=== PATIENT | female | born 1990 | race Caucasian/White ===

== ENCOUNTER → 2016-11-13 10:40 | Outpatient (CLI) | payer BC ==
[2013-11-24 16:20] VITALS: BMI 36.1
[~2016-11-13 10:40] MED LIST: HYDROCODONE-APA1 TAB PO; IBUPROFEN600 MG PO; PROTONIX40 MG PO
== END | disposition home or self-care (01) ==
LOC: D.US 10:40
DX: R10.9 Unspecified abdominal pain (principal)

== ENCOUNTER → 2016-11-29 08:03 | Outpatient (CLI) | payer MEDICAID ==
[2013-11-24 16:20] VITALS: BMI 36.1
== END | disposition home or self-care (01) ==
LOC: D.NM 08:03
DX: R10.11 Right upper quadrant pain (principal)

== ENCOUNTER → 2017-02-21 05:30 | Day surgery (SDC) | payer MEDICAID ==
[2017-02-20 12:13] LABS: BASOPHILS 0.2 % (0-2); EOSINOPHILS 1.1 % (0-7); HEMATOCRIT 40.8 % (36.0-48.0); HEMOGLOBIN 13.5 g/dL (12-16); IMMATURE GRANULOCYTES 0.2 % (0-5); LYMPHOCYTES 26.3 % (15-50); MCH 31.1 pg (26.0-34.0); MCHC 33.1 g/dL (31.0-37.0); MEAN PLATELET VOLUME 10.6 fL (7.4-10.4); MONOCYTES 9.2 % (2-11); PLATELET COUNT 220 10x3/uL (130-400); RBC 4.34 10x6/uL (4.00-5.40); RDW 13.6 % (11.5-14.5); WBC 5.3 10x3/uL (4.8-10.8)
[2017-02-20 12:26] LABS: CALC OSMOLALITY 275 mosm/kg (275-300); CALCIUM 8.8 mg/dL (8.5-10.1); CARBON DIOXIDE 28.9 mmol/L (21.0-32.0); CHLORIDE - SERUM 104 mmol/L (98-107); CREATININE - SERUM 0.7 mg/dL (0.6-1.3); GLUCOSE 87 mg/dL (74-106); POTASSIUM - SERUM 3.6 mmol/L (3.5-5.1); SODIUM 140 mmol/L (136-145); UREA NITROGEN 8 mg/dL (7-18); eGFR NON AFRICAN AMERICAN > 90 mL/min (90-120)
[~2017-02-21] VITALS: Ht 177.8 cm; Wt 86.2 kg
[~2017-02-21 05:30] MED LIST changes: +ATIVAN0.5 MG PO; +NULEV0.125 MG SL; +PHENERGAN25 M1 PO
[2017-02-21 06:27] VITALS: BP 123/73; Ht 177.8 cm; Wt 86.2 kg
[2017-02-21 06:31] LABS: HCG URINE NEGATIVE (NEGATIVE)
--- NOTE | 2017-02-21 13:44 | NUR ---
1230 DISCHARGE INSTRUCTIONS DONE ONCE PT WAS ABOUT TO URINATE. SHE HAS NO QUESTIONS OR CONCERNS AT THIS TIME. PT ESCORTED OUT BYRamesh GASTELUM RN.
--- NOTE | 2017-02-25 15:39 | OP ---
PATIENT NAME: LANCE GREGG MEDICAL RECORD: [id number] :88 LOCATION:D.OPS ADMISSION DATE: SURGEON: KHOI CARRERA MD DATE OF OPERATION: 02/21/2017 DATE OF OPERATION: 02/21/2017 PREOPERATIVE DIAGNOSIS: Biliary dyskinesia. POSTOPERATIVE DIAGNOSIS: Biliary dyskinesia. PROCEDURE: Laparoscopic cholecystectomy. SURGEON: Khoi Carrera MD REPORT OF PROCEDURE: The patient's abdomen was prepped and draped in sterile fashion. A cutdown was made on the superior aspect of the umbilicus, 0 Vicryls were placed in the fascia bilaterally and the fascia was incised with a 15-blade. I then bluntly entered the peritoneal cavity and placed a 12-mm Alyssia port. Under direct visualization, a 5 mm trocar was placed in the epigastrium and 2 more 5-mm trocars were placed in the right subcostal region. The gallbladder was grasped and elevated. The cystic artery and duct were dissected free and these were clipped proximally and distally and ligated in standard fashion. The gallbladder was taken off the liver bed using electrocautery and placed into the right upper quadrant. Any bleeding from the liver bed was then treated with electrocautery. At this point, the ports and insufflation were then removed and the gallbladder was taken out through the umbilicus. The umbilical fascia was closed with interrupted 0 Vicryls times 3. The wounds were then irrigated out with normal saline and infused with 10 mL of 0.25% Marcaine with epinephrine. The skin incisions were all closed with subcutaneous 5-0 Monocryl and dressed appropriately. COMPLICATIONS: None. CONDITION: Stable. ANESTHESIA: General endotracheal and local. BLOOD LOSS: Minimal. TRANSINT:[id number] Voice Confirmation ID: [id number] DOCUMENT ID: [id number] KHOI CARRERA MD at 1539 CC: MALIK OBRIEN MD [id number] DICTATION DATE: 02/21/17 0849 CAREER DEVELOPMENT MANAGER: 02/21/17 1310 [facility] 02/21/17 [facility] [address] [place] [address]
== END | disposition home or self-care (01) ==
LOC: D.OPS 05:30 → D.PAN 12:00
PROVIDERS: Surgery
DX: K82.8 Other specified diseases of gallbladder (principal); K21.9 Gastro-esophageal reflux disease without esophagitis; Z01.812 Encounter for preprocedural laboratory examination

== ENCOUNTER → 2018-05-21 10:05 | Outpatient (CLI) | payer SELFPAY ==
[2017-02-21 06:27] VITALS: BMI 27.3
[2018-05-21 13:24] LABS: APPEARANCE HAZY (CLEAR); BACTERIA MODERATE /hpf (NONE SEEN); BILIRUBIN NEGATIVE (NEGATIVE); COLOR YELLOW (YELLOW); EPITHELIAL CELLS 0-5 /hpf (0-5); GLUCOSE NEGATIVE (NEGATIVE); KETONE NEGATIVE (NEGATIVE); MUCUS <1+ /lpf (NONE SEEN); NITRITE NEGATIVE (NEGATIVE); PROTEIN NEGATIVE (NEGATIVE); RED CELLS - URINE 0-5 /hpf (0-5); UROBILINOGEN NORMAL (NORMAL); WHITE CELLS - URINE 0-5 /hpf (0-5)
== END | disposition home or self-care (01) ==
LOC: D.LDO 10:05
PROVIDERS: ATTEND Obstetrics & Gynecology
DX: O26.899 Other specified pregnancy related conditions, unspecified trimester (principal); Z3A.00 Weeks of gestation of pregnancy not specified

== ENCOUNTER 2018-06-03 09:43 | Outpatient (CLI) | payer OTHER ==
[2017-02-21 06:27] VITALS: BMI 27.3
[2018-06-03 10:50] LABS: APPEARANCE CLEAR (CLEAR); COLOR YELLOW (YELLOW); GLUCOSE NEGATIVE (NEGATIVE); KETONE MODERATE mg/dL (NEGATIVE); NITRITE NEGATIVE (NEGATIVE); PROTEIN NEGATIVE (NEGATIVE); SPECIFIC GRAVITY 1.005 (1.005-1.020)
[2018-06-03 10:51] LABS: BILIRUBIN NEGATIVE (NEGATIVE); UROBILINOGEN NORMAL (NORMAL)
== END 2018-06-03 13:35 ==
LOC: D.LDO 09:43
PROVIDERS: ATTEND Obstetrics & Gynecology
DX: O26.892 Other specified pregnancy related conditions, second trimester (principal); Z3A.22 22 weeks gestation of pregnancy

== ENCOUNTER → 2018-06-10 10:12 | Outpatient (CLI) | payer OTHER ==
[2017-02-21 06:27] VITALS: BMI 27.3
[2018-06-10 11:44] LABS: APPEARANCE CLEAR (CLEAR); BILIRUBIN NEGATIVE (NEGATIVE); COLOR YELLOW (YELLOW); GLUCOSE NEGATIVE (NEGATIVE); KETONE MODERATE mg/dL (NEGATIVE); NITRITE NEGATIVE (NEGATIVE); PROTEIN NEGATIVE (NEGATIVE); SPECIFIC GRAVITY 1.005 (1.005-1.020); UROBILINOGEN NORMAL (NORMAL)
[2018-06-10 12:54] LABS: APPEARANCE CLEAR (CLEAR); BILIRUBIN NEGATIVE (NEGATIVE); COLOR STRAW (YELLOW); GLUCOSE 1000 mg/dL (NEGATIVE); KETONE MODERATE mg/dL (NEGATIVE); NITRITE NEGATIVE (NEGATIVE); PROTEIN NEGATIVE (NEGATIVE); SPECIFIC GRAVITY 1.015 (1.005-1.020); UROBILINOGEN NORMAL (NORMAL)
== END | disposition home or self-care (01) ==
LOC: D.LDO 10:12
PROVIDERS: ATTEND Obstetrics & Gynecology
DX: O26.892 Other specified pregnancy related conditions, second trimester (principal); Z3A.24 24 weeks gestation of pregnancy

== ENCOUNTER → 2018-06-18 11:25 | Outpatient (CLI) | payer OTHER ==
[~2018-06-18 11:25] MED LIST changes: +AMOXICILLIN875 MG PO; +CREON (PANCRELI1 CAP PO; +METOPROLOL TART50 MG PO; +MOBIC7.5 MG PO; +PERCOCET 7.5/321 TAB PO
[2018-06-18 12:55] LABS: APPEARANCE CLEAR (CLEAR); BILIRUBIN NEGATIVE (NEGATIVE); COLOR YELLOW (YELLOW); GLUCOSE NEGATIVE (NEGATIVE); KETONE LARGE mg/dL (NEGATIVE); NITRITE NEGATIVE (NEGATIVE); PROTEIN NEGATIVE (NEGATIVE); SPECIFIC GRAVITY 1.015 (1.005-1.020); UROBILINOGEN NORMAL (NORMAL)
[2018-06-18 15:14] LABS: APPEARANCE CLEAR (CLEAR); BILIRUBIN NEGATIVE (NEGATIVE); COLOR STRAW (YELLOW); GLUCOSE 1000 mg/dL (NEGATIVE); KETONE MODERATE mg/dL (NEGATIVE); NITRITE NEGATIVE (NEGATIVE); PROTEIN NEGATIVE (NEGATIVE); SPECIFIC GRAVITY 1.005 (1.005-1.020); UROBILINOGEN NORMAL (NORMAL)
[2018-06-18 17:08] LABS: APPEARANCE CLEAR (CLEAR); BILIRUBIN NEGATIVE (NEGATIVE); COLOR STRAW (YELLOW); GLUCOSE 1000 mg/dL (NEGATIVE); KETONE SMALL mg/dL (NEGATIVE); NITRITE NEGATIVE (NEGATIVE); PROTEIN NEGATIVE (NEGATIVE); UROBILINOGEN NORMAL (NORMAL)
--- NOTE | 2018-06-18 17:36 | NUR ---
2nd iv bag infused. iv d/noelle with cath tip intact- pressure held and bandaide applied. discharge inst verbal and written given. ambulatory off unit.
== END | disposition home or self-care (01) ==
LOC: D.LDO 11:25
PROVIDERS: Obstetrics & Gynecology
DX: O26.90 Pregnancy related conditions, unspecified, unspecified trimester (principal)

== ENCOUNTER → 2018-09-16 17:16 | Outpatient (CLI) | payer OTHER ==
[2017-02-21 06:27] VITALS: BMI 27.3
[~2018-09-16 17:16] MED LIST changes: -AMOXICILLIN875 MG PO; -CREON (PANCRELI1 CAP PO; -METOPROLOL TART50 MG PO; -MOBIC7.5 MG PO; -PERCOCET 7.5/321 TAB PO
== END | disposition home or self-care (01) ==
LOC: D.LDO 17:16
PROVIDERS: ATTEND Obstetrics & Gynecology
DX: O26.893 Other specified pregnancy related conditions, third trimester (principal); Z3A.38 38 weeks gestation of pregnancy

== ENCOUNTER 2018-09-30 02:57 | Inpatient (IN) | payer OTHER ==
[~2018-09-30] VITALS: Ht 177.8 cm; Wt 86.2 kg
[2018-09-30] VITALS (7 sets, daily range): BP systolic 114–131; BP diastolic 64–76; Ht 177.8 cm; Wt 86.2 kg
[2018-09-30 03:45] LABS: HEMATOCRIT 35.7 % (36.0-48.0); HEMOGLOBIN 12.7 g/dL (12-16); MCH 32.1 pg (26.0-34.0); MCHC 35.6 g/dL (31.0-37.0); MCV 90.2 fL (80.0-100.0); MEAN PLATELET VOLUME 12.5 fL (7.4-10.4); RBC 3.96 10x6/uL (4.00-5.40); RDW 13.9 % (11.5-14.5); WBC 6.2 10x3/uL (4.8-10.8)
[2018-09-30] MEDS ORDERED: CREON (PANCRELI1 CAP PO (03:45)
[2018-09-30] MEDS ORDERED: AMOXICILLIN875 MG PO (03:57)
[2018-09-30 04:08] LABS: UDS - AMPHET NEGATIVE QUAL (NEGATIVE); UDS - BARB NEGATIVE QUAL (NEGATIVE); UDS - BENZO NEGATIVE QUAL (NEGATIVE); UDS - COCAINE NEGATIVE QUAL (NEGATIVE); UDS - OPIATE NEGATIVE QUAL (NEGATIVE); UDS - PCP NEGATIVE QUAL (NEGATIVE); UDS - THC NEGATIVE QUAL (NEGATIVE)
--- NOTE | 2018-09-30 06:20 | NUR ---
RECEIVED PT VIA BED FROM POST REPEAT C/S PER DR ASHLEY, PT TO ROOM 1227, VS INITIATED,
--- NOTE | 2018-09-30 06:20 | NUR ---
CONTINUATION FROM FIRST NOTE: RECOVERY VS PER THIS RN AND JATINDER SANDOVAL, RN, FF, ML, U/1, LITE BLEEDING NOTED WITH NO CLOTS, COLEEN PAD CHANGED, BIKINI INC WITH SMALL DRESSING CDI WITH NO DRAINAGE NOTED, ICE PACK TO ABD, PETE CATH INTACT DRAINING CLEAR YELLOW URINE, IV IN RIGHT FA INTACT WITH NO REDNESS OR EDEMA, NS WITH PITOCIN HUNG IV PER MD ORDERS INFUSING AT 125 ML/HR, SEE EMAR, PT RATES CRAMPING 5-6/10, WILL ADM TORADOL, BED IN LOW POSITION, SIDE RAILS X 2, CALL LIGHT IN REACH
--- NOTE | 2018-09-30 07:01 | NUR ---
ADM TORADOL SIVP PER MD ORDERS, SEE EMAR, BREAKFAST TRAY SERVED, PT ORIENTED TO ROOM, BED IN LOW POSITION, SIDE RAILS X 2, CALL LIGHT IN REACH
--- NOTE | 2018-09-30 07:15 | NUR ---
SHIFT REPORT TO USMAN VERGARA RN
--- NOTE | 2018-09-30 07:50 | NUR ---
PT TALKING ON CELL PHONE, FF, ML, U/1, LITE BLEEDING NOTED, BLUE CHUX AND COLEEN PAD CHANGED, VS CONTINUE, FAMILY TO ROOM
--- NOTE | 2018-09-30 09:00 | NUR ---
FUNDUS FIRM AT U/1, LIGHT BLEEDING WITHOUT CLOTS. PT RATES PAIN AT 3/10 AND DENIES NEEDS AT THIS TIME.
--- NOTE | 2018-09-30 11:30 | NUR ---
FUNDUS FIRM AT U/U WITH LIGHT BLEEDING AND NOT CLOTS NOTED. RATES PAIN AT 4/10 AND STATES SHE HAS MORE "GAS PAIN" IN HER SHOULD AREA THAN INCISIONAL PAIN. POSITION TILTED TO HER RIGHT SIDE RAILS UP X 2 AND CALL LIGHT IN REACH.
--- NOTE | 2018-09-30 17:29 | NUR ---
MYLICON 160 MG GIVEN PO FOR RELIEF OF GAS PAIN IN SHOULDERS AND SIDES OF ABDOMEN. DESIRES TO AMBULATE. WILL DC PETE AND NORMALIZE PER MD ORDERS. SITTING UP IN BED. SIDERAILS X 2 UP, CALL LIGHT IN REACH. DENIES OTHER PAIN BESIDES "GAS PAINS".
--- NOTE | 2018-09-30 18:45 | NUR ---
PT REQUESTED PETE CATH BE REMOVED. DC'D WITHOUT DIFFICULTY, 950 DARK URINE. WOULD LIKE TO SHOWER BUT PLANS TO WAIT UNTIL AFTER VISITORS LEAVE. DISCUSSED PLAN TO VOID WITHIN NEXT 4-6 HOURS, [place] HAT PLACED IN COMMODE. PLAN SHOWER AND AMBULATION AFTER VISITORS. SCDS IN PLACE BILATERALLY AND FUNCTIONING. NO REQUESTS AT THIS TIME. SIDE RAILS UP X 2, CALL LIGHT IN REACH.
--- NOTE | 2018-09-30 19:25 | NUR ---
PM ROUNDS MADE, PT VISITING WITH FAMILY AND FRIENDS, INFORMED PT THAT I WILL BE BACK SHORTLY TO ASSESSMENT, PT VERBALIZES UNDERSTANDING, DENIES NEEDS AT THIS TIME, SCD'S ON AND CONTINUE WORKING PROPERLY, BED IN LOW, SIDE RAILS X 2, CALL LIGHT IN REACH
--- NOTE | 2018-09-30 20:44 | NUR ---
PT SITTING UP IN BED HOLDING BABY. REPORTS PAIN /10, ADMINISTERED TORADOL PER DRS ORDERS. DENIES ANY FURTHER NEEDS AT THIS TIME.
--- NOTE | 2018-09-30 21:15 | NUR ---
ASSESSMENT PER FLOW SHEET, SALINE LOCK IN RIGHT FA INTACT WITH NO REDNESS OR EDEMA, FF, ML, U/1, PT REPORTS LITE BLEEDING, SCANT BLEEDING NOTED ON COLEEN PAD WITH NO CLOTS, BIKINI INC WITH SMALL DRESSING CDI WITH NO DRAINAGE NOTED, ICE PACK TO ABD, PT DENIES FLATUS, PT INST ON DUE TO VOID, PT VERBALIZES UNDERSTANDING, STATES "I THINK I NEED TO GO", PT UP TO BR, GAIT STEADY, VOIDED 300 MLS OF BLOOD TINGED URINE BY SELF WITH NO DIFFICULTY, PT BACK TO BED, DENIES FURTHER NEEDS, BED IN LOW POSITION, SIDE RAILS X 2, CALL LIGHT IN REACH
--- NOTE | 2018-09-30 21:40 | NUR ---
PT AMB IN FERNEY, GAIT STEADY
--- NOTE | 2018-09-30 22:15 | NUR ---
PT GRANTS OFFICER LIGHT, PT C/O PAIN, ADM PERCOCET PER MD ORDERS, SEE EMAR, PT DENIES FURTHER NEEDS AT THIS TIME
--- NOTE | 2018-09-30 23:00 | NUR ---
PT TRANSFERRED VIA AMB TO ROOM 1218, WITH ALL BELONGINGS, PT ORIENTED TO ROOM, BED IN LOW POSITION, SIDE RAILS X 2, CALL LIGHT IN REACH
--- NOTE | 2018-10-01 00:30 | NUR ---
ROUNDS MADE, SCD'S APPLIED AND WORKING PROPERLY. PT REPORTS VOIDING, EMPTIED 500 MLS OF LIGHTLY BLOOD TINGED FROM [place] HAT, PT REPORTS THAT HER TV DOESN'T WORK, PT TRANSFERRED VIA BED TO ROOM 1221, PT ORIENTED TO ROOM, BED IN LOW POSITION, SIDE RAILS X 2, CALL LIGHT IN REACH, ALL BELONGINGS AND INFANT TO ROOM 1221
[2018-10-01 01:02] VITALS: BP 101/63
--- NOTE | 2018-10-01 01:05 | NUR ---
PT SUPERVISOR HYDROCHLORIC AREA LIGHT, PHONE DROPPED IN THE FLOOR. DENIES ANY NEEDS AT THIS TIME. BED LOW, CALL LIGHT IN REACH, RAILS UP X 2.
--- NOTE | 2018-10-01 02:17 | NUR ---
PT LAYING IN BED WATCHING TV, BABY IN OPEN CRIB SLEEPING AT BEDSIDE. PT REPORTS PAIN 5/10, ADMINISTERED TORADOL PER DRS ORDERS. DENIES ANY FURTHER NEEDS AT THIS TIME. BED LOW, CALL LIGHT IN REACH, RAILS UP X 2.
--- NOTE | 2018-10-01 04:00 | NUR ---
CARE TURNED OVER TO WILI KHOURY RN
--- NOTE | 2018-10-01 04:26 | NUR ---
VITALS TAKEN. PT REPORTS PAIN 6/10 ADMINISTERED PERCOCET PER DRS ORDERS. DENIES ANY FURTHER NEEDS AT THIS TIME.
[2018-10-01 04:43] VITALS: BP 113/70
--- NOTE | 2018-10-01 05:24 | NUR ---
PT STUDENT SERVICES VICE PRESIDENT LIGHT, ASSISTED HER IN CHANGING BABY'S DIAPER. DENIES ANY FURTHER NEEDS AT THIS TIME.
[2018-10-01 07:14] LABS: RAPID PLASMA REAGIN Non Reactive (Non Reactive)
--- NOTE | 2018-10-01 07:25 | NUR ---
ASSESSMENT DONE. PT AWAKE HOLDING INFANT. ICE WATER GIVEN. DENIES OTHER NEEDS.
[2018-10-01 07:34] VITALS: BP 117/74
--- NOTE | 2018-10-01 09:04 | NUR ---
REQUESTING PAIN MEDICATION- RATES PAIN A 6 ON SCALE OF 0-10. CO PAIN IN STOMACH AND SIDES. MED GIVEN.
--- NOTE | 2018-10-01 09:22 | NUR ---
DR ASHLEY HERE TO SEE PT.
--- NOTE | 2018-10-01 09:25 | OP ---
PATIENT NAME: LANCE GREGG MEDICAL RECORD: [id number] :86 [facility] ADMISSION DATE:09/30/18 SURGEON: MIKE ASHLEY MD DATE OF OPERATION: 09/30/2018 PREOPERATIVE DIAGNOSES: 1. Active labor at 40 weeks' gestation. 2. History of prior section. POSTOPERATIVE DIAGNOSES: 1. Active labor at 40 weeks' gestation. 2. History of prior section. PROCEDURE: Repeat low transverse section. SURGEON: Mike Ashley MD MEDICAID BILLING CLERK: [facility] ANESTHESIA: Spinal. FINDINGS: Viable female , vertex presentation, Apgars 9 and 9, weight 3616 grams. Unremarkable uterus, tubes, and ovaries. SPECIMEN REMOVED: Placenta. SPECIMEN DISPOSITION: Discarded. ESTIMATED BLOOD LOSS: 700 cc. FLUIDS: 2800 cc of lactated Ringer's. URINE OUTPUT: 400 cc of clear urine. COMPLICATIONS: None. DRAIN: Rao to gravity. INDICATIONS: The patient is a 27-year-old -0-1-1 at 40 weeks' gestation. The patient has had a prior section and desires to be back. The patient presented to [facility] where after evaluation, she was sent home. Upon returning to this area, she ruptured spontaneously, presents to labor and delivery in active labor. The patient is consented for a repeat . DESCRIPTION OF PROCEDURE: After informed consent was assured, the patient was taken to the operating room where anesthetic was obtained without difficulty. The patient was now prepped and draped in the usual sterile fashion. An incision was made over the old scar and carried down to the underlying layer of the fascia, which was opened in the midline and extended laterally. Rectus bellies were now dissected free superiorly and inferiorly and then . The peritoneum was entered and the DeLee all-purpose retractor inserted. Bladder flap was developed and a low transverse hysterotomy was performed. The infant was delivered onto the abdomen atraumatically. The 's cord was doubly clamped and cut, and the infant was passed to the attendant. Cord blood sample was obtained. The placenta was delivered via Crede maneuver. Uterus was OPERATIVE REPORT [id number] LANCE GREGG now exteriorized, cleared of all clot and debris. The hysterotomy was now closed with double layer of chromic stitching. After hemostasis was assured, the uterus was returned to the abdomen and inspected. Surgicel powder was now placed over the lower segment to assure hemostasis. The rectus bellies were reapproximated with a loose stitch in the midline. Fascia was closed with looped PDS. Subcutaneous tissues were irrigated, bleeding vessels cauterized, and deep tissues closed with plain gut stitch. Skin was reapproximated with subcuticular stitch. Sterile dressing was applied. Sponge, lap, and needle counts correct times 2 at the close of this procedure. TRANSINT:[id number] Voice Confirmation ID: [id number] DOCUMENT ID: [id number] MIKE ASHLEY MD at 0925 CC: [id number] DICTATION DATE: 09/30/18714 ROBOTICS MECHANIC: 09/30/18 0825 ADM IN [facility] [address] [place] [address]
--- NOTE | 2018-10-01 10:17 | NUR ---
STATES PAIN IS BETTER- DENIES NEEDS. BABY IN ARMS.
[2018-10-01 13:21] VITALS: BP 125/88
--- NOTE | 2018-10-01 13:24 | NUR ---
SITTING UP IN BED- SIGN OTHER AT BEDSIDE HOLDING .
--- NOTE | 2018-10-01 14:00 | NUR ---
AMBULATING IN HALLWAY WITH SIGN OTHER- TOLERATING WELL.
--- NOTE | 2018-10-01 15:33 | NUR ---
Sai [place] OVERLAY PLASTICIAN IN ROOM TO VISIT WITH PT.
[2018-10-01 16:15] VITALS: BP 126/80
--- NOTE | 2018-10-01 16:36 | NUR ---
ABD DRESSING REMOVED. STERI STRIPS INTACT. INCISION APPEARANCE WNL. INSTRUCTED ON INCISION CARE. COLEEN PAD PLACED LONG WAY.
--- NOTE | 2018-10-01 17:10 | NUR ---
REQUESTING PAIN MEDICATION- RATES PAIN A 5 ON SCALE OF 0-10. STATES IS PASSING FLATUS. MED GIVEN.
--- NOTE | 2018-10-01 18:17 | NUR ---
AMBULATING IN [facility] WELL.
--- NOTE | 2018-10-01 18:19 | NUR ---
SITTING UP IN BED TALKING WITH VISITORS. UP AND ABOUT AT WILL. DENIES NEEDS.
[2018-10-01 19:45] VITALS: BP 113/69; BP 120/82
--- NOTE | 2018-10-01 19:45 | NUR ---
ASSESSMENT PER FLOW SHEET, VS OBTAINED, SALINE LOCK IN RIGHT FA INTACT WITH NO REDNESS OR EDEMA, FF, ML, U/2, PT REPORTS SCANT BLEEDING WITH NO CLOTS, BIKINI INC WITH DB AND STERI STRIPS CDI WITH IN DRAINAGE NOTED, COLEEN PAD OVER INC FOR COMFORT AND MOISTURE CONTROL, PT REPORTS FLATUS, NO BM AND VOIDING WITH NO DIFFICULTY, PT RATES INC PAIN 05/17, INFORMED PT THAT I WILL ADM PAIN MED AND TORADOL WHEN DUE, PT VERBALIZES UNDERSTANDING, PT DENIES NEEDS AT THIS TIME, INFANT IN OPEN CRIB CART AND FOB AT BEDSIDE
--- NOTE | 2018-10-01 20:22 | NUR ---
PT UP IN ROOM, DENIES NEEDS AT THIS TIME, INFANT IN OPEN CRIB CART AND FOB AT BEDSIDE
--- NOTE | 2018-10-01 21:18 | NUR ---
PT RESTING IN BED, IN OPEN CRIB CART AT BEDSIDE, BEDDING PROVIDED TO FOB, INFORMED PT THAT I WILL BE BACK IN AROUND 10:30PM TO ADM TORADOL, PT VERBALIZES UNDERSTANDING, DENIES FURTHER NEEDS, BED IN LOW POSITION, SIDE RAILS X 2, CALL LIGHT IN REACH
--- NOTE | 2018-10-01 22:37 | NUR ---
PT AWAKE HOLDING , ADM TORADOL PER MD ORDERS, SEE EMAR PT DENIES NEED OF PERCOCET PER MD ORDERS, SEE EMAR PT INST TO USE CALL LIGHT WHEN READY FOR IT, PT DENIES FURTHER NEEDS, FOB AT BEDSIDE
--- NOTE | 2018-10-01 23:17 | NUR ---
PT FARM CONTRACTOR BUYER LIGHT, ADM PERCOCET PER MD ORDERS, SEE EMAR, PT DENIES FURTHER NEEDS
--- NOTE | 2018-10-02 00:30 | NUR ---
UPON ENTERING ROOM, PT RESTING WITH EYES CLOSED, HOLDING , PT AROUSES TO SOFT VERBAL STIMULATION, PT INST ON SLEEPING WITH INFANT IN BED, PT VERBALIZES UNDERSTANDING, INFANT BACK TO OPEN CART, PT DENIES NEEDS OR PAIN, FOB ASLEEP IN RECLINER
--- NOTE | 2018-10-02 02:22 | NUR ---
PT RESTING WITH EYES CLOSED, RESP QUIET, NO DISTRESS NOTED, ELFT UNDISTURBED AT THIS TIME, IN OPEN CRIB CART, FOB ASLEEP IN RECLINER
[2018-10-02 03:25] VITALS: BP 137/85
--- NOTE | 2018-10-02 03:25 | NUR ---
PT PLANNER INTERN LIGHT, C/O INC PAIN, ADM PERCOCET PER MD ORDERS, SEE EMAR, VS OBTAINED, PT DENIES FURTHER NEEDS, IN ROOM, FOB ASLEEP IN RECLINER
--- NOTE | 2018-10-02 04:32 | NUR ---
PT AWAKE, HOLDING INFANT, ADM TORADOL PER MD ORDERS, SEE EMAR, PT DENIES NEEDS, FOB ASLEEP ON RECLINER
--- NOTE | 2018-10-02 06:23 | NUR ---
DR ASHLEY TO ROOM
--- NOTE | 2018-10-02 06:31 | NUR ---
PT AWAKE, HOLDING INFANT, DENIES NEEDS OR PAIN AT THIS TIME
--- NOTE | 2018-10-02 07:00 | NUR ---
SHIFT REPORT TO RODOLFO MARIE RN
--- NOTE | 2018-10-02 07:02 | NUR ---
DR ASHLEY CALLS UNIT AND GIVES DISCHARGE ORDERS.
[2018-10-02 07:30] VITALS: BP 122/78
--- NOTE | 2018-10-02 07:30 | NUR ---
SITTING UP IN BED HOLDING . VS AND ASSESSMENT DONE. INCISION APPEARANCE WNL. SCANT LOCHIA NOTED ON PAD. STATES SHE IS READY TO GO HOME. DENIES NEEDS.
[2018-10-02] MEDS ORDERED: MOBIC7.5 MG PO (08:49)
[2018-10-02] MEDS ORDERED: PERCOCET 7.5/321 TAB PO (08:50)
--- NOTE | 2018-10-02 09:25 | NUR ---
REQUESTING PAIN MEDICATION- CO PAIN AT INCISION AND SIDES. RATES PAIN A 5 ON SCALE OF 0-10. MED GIVEN.
--- NOTE | 2018-10-02 10:38 | NUR ---
IV SALINE LOCK REMOVED WITH CATH TIP INTACT. PRESSURE HELD AND BANDAIDE APPLIED. DISCHARGE INST VERBAL AND WRITTEN GIVEN. SCRIPTS X 2 GIVEN ALONG WITH PT MED REC AND DRUG DATA SHEETS. PT HEALTH SUMMARY GIVEN. PFW DISCHARGE INST GIVEN. AWHONN DISCHARGE INST GIVEN. SEE ALSO SIGNED INST FORMS. PT DENIES QUESTIONS. PT STATES SHE IS READY FOR DISCHARGE BUT WAITING FOR DISCHARGE.
--- NOTE | 2018-10-02 12:30 | NUR ---
PT STATES THAT SHE IS READY FOR DISCHARGE- DISCHARGED WITH . TO AUTO VIA W/C.
[2018-10-03] MEDS ORDERED: ATIVAN0.5 MG PO (16:49)
== END 2018-10-02 12:30 | disposition home or self-care (01) | DRG 788 ==
LOC: D.LDO 02:57 → D.LD 03:30 → D.WS 23:00
PROVIDERS: ADMIT Obstetrics & Gynecology; ATTEND Obstetrics & Gynecology
PROC: 10D00Z1 Extraction of Products of Conception, Low, Open Approach (ICD-10-PCS; principal; 2018-09-30 04:44)
DX: O34.211 Maternal care for low transverse scar from previous cesarean delivery (principal); Z3A.40 40 weeks gestation of pregnancy; Z37.0 Single live birth

== ENCOUNTER 2018-10-03 14:20 | Observation (INO) | payer OTHER ==
[~2018-10-03] VITALS: Ht 177.8 cm; Wt 86.4 kg
--- NOTE | 2018-10-03 13:15 | NUR ---
DR LIM CALLED UNIT TO INFORM US THAT HE WAS SENDING THIS PT TO US AND THAT WHEN SHE GETS HERE, PUT HER IN THE NST ROOM, GET A SET OF VS AND NOTIFY HIM
[~2018-10-03 14:20] MED LIST changes: +AMOXICILLIN875 MG PO; +CREON (PANCRELI1 CAP PO; +MOBIC7.5 MG PO; +PERCOCET 7.5/321 TAB PO
--- NOTE | 2018-10-03 14:25 | NUR ---
RECEIVED PT VIA AMB FROM HOME, PT TO NST ROOM, VS OBTAINED, POC DISCUSSED WITH PT, PT VERBALIZES UNDERSTANDING
--- NOTE | 2018-10-03 14:31 | NUR ---
DR LIM PAGED
--- NOTE | 2018-10-03 14:32 | NUR ---
DR LIM CALLS UNIT, REPORT OF VS, SLIGHT SOB, RESP, AND IRREGULAR HEART RATE, ORDERS RECEIVED, READ BACK AND VERIFIED, KY CADENA RN PUT ORDERS IN AND NOTIFIED LAB, CT, AND UNABLE TO REACH RESP AT THIS TIME
--- NOTE | 2018-10-03 14:45 | NUR ---
POC DISCUSSED WITH PT, PT VERBALIZES UNDERSTANDING, ATTEMPTED IV IN RIGHT WRIST WITH NO SUCCESS, PT REQUEST IV IN LEFT FA, INFORMED PT THAT I WILL HAVE [place] CADENA RN COME IN TO START IV, PT VERBALIZES UNDERSTANDING
[2018-10-03 15:01] LABS: BASOPHILS 0.2 % (0-2); EOSINOPHILS 1.6 % (0-7); HEMATOCRIT 30.2 % (36.0-48.0); HEMOGLOBIN 10.2 g/dL (12-16); IMMATURE GRANULOCYTES 0.4 % (0-5); LYMPHOCYTES 21.3 % (15-50); MCH 31.8 pg (26.0-34.0); MCHC 33.8 g/dL (31.0-37.0); MCV 94.1 fL (80.0-100.0); MONOCYTES 6.9 % (2-11); NEUTROPHILS 69.6 % (40-80); RBC 3.21 10x6/uL (4.00-5.40); RDW 14.4 % (11.5-14.5); WBC 4.9 10x3/uL (4.8-10.8)
[2018-10-03 15:03] LABS: PLATELET COUNT 213 10x3/uL (130-400)
[2018-10-03 15:25] LABS: ALBUMIN 2.2 g/dL (3.4-5.0); ALKALINE PHOSPHATASE 115 U/L (46-116); ALT (SGPT) 16 U/L (10-68); BILIRUBIN - TOTAL 0.39 mg/dL (0.2-1.3); CALC OSMOLALITY 280 mosm/kg (275-300); CARBON DIOXIDE 23.8 mmol/L (21.0-32.0); CHLORIDE - SERUM 107 mmol/L (98-107); CREATININE - SERUM 0.7 mg/dL (0.6-1.3); GLUCOSE 90 mg/dL (74-106); POTASSIUM - SERUM 3.6 mmol/L (3.5-5.1); PROTEIN - SERUM 5.3 g/dL (6.4-8.2); SODIUM 141 mmol/L (136-145); UREA NITROGEN 13 mg/dL (7-18); eGFR NON AFRICAN AMERICAN > 90 mL/min (90-120)
--- NOTE | 2018-10-03 15:31 | NUR ---
LAB WAS HERE, BLOOD DRAWN, RESULTS BACK. RESPIRATORY THERAPY HERE FOR EKG, IV-SALINE LOCK STARTED IN LEFT WRIST/FA WITH 18 G CATH WITHOUT DIFFICULTY. SALINE FLUSHED. RADIOLOGY NOTIFIED THAT LAB RESULTS BACK, THAT PT IS CURRENTLY GETTING EKG AND THEN WILL BE READY WHEN THEY ARE. PT UP TO BATHROOM PRIOR TO EKG. VISITOR AND IN ROOM.
--- NOTE | 2018-10-03 15:41 | NUR ---
RESULTS OF EKG CALLED TO DR LIM. INFORMED THAT PT JUST LEFT FOR CT. TO CALL MD SOON RESULTS OF CT SCAN ARE OBTAINED. PT TO CT VIA WHEELCHAIR.
--- NOTE | 2018-10-03 15:52 | NUR ---
PT BACK TO ROOM FROM CT, PT TO BR
--- NOTE | 2018-10-03 16:17 | NUR ---
PT BACK IN BED, OP ADMISSION ASSESSMENT INITIATED, NEW SET OF VS OBTAINED
[2018-10-03 16:39] VITALS: BP 124/72; BMI 26.6
[2018-10-03] MEDS ORDERED: ATIVAN0.5 MG PO (16:49)
--- NOTE | 2018-10-03 16:49 | NUR ---
OP ASSESSMENT AND MED REC COMPELTED, POC DISCUSSED WITH PT, PT VERBALIZES UNDERSTANDING, S/O AT BEDSIDE GETTING READY TO FEED BABY, BED IN LOW POSITION, SIDE RAILS X 2, CALL LIGHT IN REACH
--- NOTE | 2018-10-03 16:53 | NUR ---
KY CADENA, RN INFORMS ME SHE TRIED TO CALL RADIOLOGY REGARDING CT REPORT, SHE DID NOT GET AN ANSWER, THIS RN ATTEMPTED TO CALL ALSO BUT GOT NO ANSWER
--- NOTE | 2018-10-03 17:26 | NUR ---
RESULTS OF CT CALLED TO DR LIM. T.O. ORDERS CARDIOLOGY CONSULT RECEIVED.
--- NOTE | 2018-10-03 18:01 | NUR ---
PT TRANSFERRED TO ROOM 2120, REPORT WAS CALLED TO JEREL MONTGOMERY PER JEREL YOUNGPEOPLESOFT HRMS DEVELOPER
--- NOTE | 2018-10-03 18:29 | NUR ---
RECEIVED PT VIA W/C TO ROOM 2119 FROM L&D AAOX4 DENIES ANY PAIN VS 121/96 18 156 TELEMETRY SHOW AFIB WITH RVR 156 CARDIZEM 10 MG BOLUS GIVEN IVP CARDIZEM GTT STARTED AT 5 ML/HR TO LFA WITHOUT DIFFICULTY WILL CONTINUE TO MONITOR
--- NOTE | 2018-10-03 19:26 | NUR ---
RECIEVED UP AMBULATING IN HALLWAY. REDIRECTED TO ROOM. ALERT AND ORIENTED X4. UP AD WALES[place]. SPOUSE AT BEDSIDE. INCISION TO LOWER ABDOMEN WITH STERI STRIPS IN PLACE. IV TO LEFT FA WITH CARDIZEM AT 5CC/HR. NO REDNESS OR SWELLING TO SITE. DSWG CLEAN DRY AND INTACT. TELEMETRY IN PLACE. DENIES ANY NEEDS AT THIS TIME.
[2018-10-04 00:55] VITALS: BP 124/72; Ht 177.8 cm; Wt 86.4 kg
--- NOTE | 2018-10-04 07:30 | NUR ---
ASSESSMENT COMPLETED. ALERT AND ORIENTED. TELEMERTY SHOWS A FIB AT 88. CARDIZEM DRIP AT 10 INFUSING INTO THE LEFT FOREARM. UP AB WALESKA. DENIES ANY NEEDS.
--- NOTE | 2018-10-04 08:00 | NUR ---
AMBAR TURNED OFF PER DR. CURTIS.
[2018-10-04] MEDS ORDERED: METOPROLOL TART50 MG PO (12:46)
--- NOTE | 2018-10-04 13:04 | NUR ---
I have reviewed this patient and I concur with the Shift Assessment completed by the Licensed Practical Nurse today this shift.
--- NOTE | 2018-10-04 13:34 | NUR ---
PT DISCHARGED. IV DCD WITH TIP INTACT. INSTRUCTIONS GIVEN TO PT AND FAMILY
--- NOTE | 2018-10-05 09:55 | MORECARE ---
CASE MANAGEMENT DISCHARGE SUMMARY PATIENT: LANCE GREGG UNIT: [id number] ADM DATE: 10/03/18 AGE: 27 : 88 SEX: F ROOM/BED: D.2120 AUTHOR: BARBI ASHTON PHYSICIAN: REFERRING PHYSICIAN: NATHALIA CURTIS MD DATE OF SERVICE: 10/05/18 Discharge Plan Patient Name: LANCE GREGG [facility] [facility] 1990 Planned Disposition: Home Anticipated Discharge Date: 10/04/18 Discharge Date: 10/04/2018 Expected LOS: 1 Initial Reviewer: [email or web address] Initial Review Date: 10/05/2018 Generated: 10/05/18 10:55 am Patient Name: LANCE GREGG Page [id number] at 0955 All edits/amendments must be made on the electronic document DICTATION DATE: 10/05/18954 DATA ANALYSIS MANAGER: SAVANA 10/05/18954 RPT#: [id number] DC DATE:10/04/18 STATUS: DIS IN [facility] [address] [place] [address] END OF REPORT
--- NOTE | 2018-10-12 13:55 | HP ---
PATIENT: LANCE GREGG MEDICAL RECORD: [id number] ACCOUNT: [id number] LOCATION:[address] : [birth year] ADMISSION DATE: 10/03/18 PCP: MALIK OBRIEN MD HISTORY AND PHYSICAL EXAMINATION HISTORY OF PRESENT ILLNESS: A 27-year-old female 3 days postop from a section was feeling well up until awakening with heart racing, fluttering, found to be in atrial fibrillation. She is admitted for further evaluation. PAST MEDICAL HISTORY: Includes history of recent section. MEDICATIONS: On admit include Phenergan 25 mg p.o. q.4 hours p.r.n., amoxicillin 800 q.12 hours for 10 days, Ativan 0.5 mg p.o. p.r.n., meloxicam 15 mg p.o. daily, Percocet 7.5/325 p.r.n. SOCIAL HISTORY: Nonsmoker, nondrinker, has been walking during pregnancies. Easily takes care of all her ADLs. ALLERGIES: LATEX. PHYSICAL EXAMINATION: GENERAL: Pleasant female in no acute distress. VITAL SIGNS: Blood pressure 124/72, pulse 113 and regular. HEENT: Normocephalic, atraumatic. NECK: No bruits are noted. HEART: Irregular, rate is controlled currently. LUNGS: Good air excursion. ABDOMEN: Soft, nontender. EXTREMITIES: Pulses 2+. No edema. DIAGNOSTIC DATA: ECG shows atrial fibrillation, controlled rate at this point. IMPRESSION: Atrial fibrillation. Questionable subclinical hypothyroid peripartum, postop section. No evidence of volume overload today on exam, doubt cardiomyopathy. The patient is transferred from IV Cardizem to p.o. beta blockade. The patient is not . Thyroid is pending. X-rays were ordered. She will be seen back in the office in 3 weeks. TRANSINT:[id number] Voice Confirmation ID: [id number] DOCUMENT ID: [id number] NATHALIA CURTIS MD at 1355 CC: [id number] DICTATION DATE: 10/04/18 1147 PARKING ENFORCEMENT OFFICER: 10/04/18 1200 DIS IN 10/04/18 [id number] [place] [address]
--- NOTE | 2018-10-12 13:55 | EC ---
PATIENT:LANCE GREGG DATE OF SERVICE: 10/03/18 SEX: F MEDICAL RECORD: [id number] DATE OF : [birth year] LOCATION:D. D.212 AGE OF PATIENT: 27 ADMISSION DATE: 10/03/18 REFERRING PHYSICIAN: INTERPRETING PHYSICIAN: NATHALIA CURTIS MD ECHOCARDIOGRAM REPORT ECHO CHARGES 4 ECHO COMPLETE Date: 10/04/18 CLINICAL DIAGNOSIS: AFIB ECHOCARDIOGRAPHIC MEASUREMENTS (adult normal given) AC root (d.<3.7cm) 2.5 cm LV Septum d (<1.2 cm> 1.2 cm Valve Excursion 1.4 cm LV Septum (systole) 1.6 cm Left Atria (s.<4.0cm> 4.3 cm LVPW d(<1.2cm) 1.1 cm RV (d.<2.3cm) 2.9 cm LVPW (sytole) 1.6 cm LV diastole(<5.6CM) 4.8 cm MV E-F(>70mm/sec) cm LV systole 3.3 cm LVOT Diameter 1.8 cm MV exc.(>10mm) cm Est.ejection fraction (50-75%) % DOPPLER: LVIT cm/sec A 34 cm/sec E 110 cm/sec LA cm/sec RVSP 25.1 mmHg LVOT 123 cm/sec AOP1/2T m/s Asc. Ao 121 cm/sec RVOT 71 cm/sec RA cm/sec PA 87 cm/sec AV Gradient Peak 5.8 mmHg AV Mean 4.0 mmHg AV Area 2.4 cm MV Gradient Peak 5.1 mmHg MV Mean 2.1 mmHg MV Area cm COMMENTS: Sewer Digger: Josy PATINO Support Associate: 3 Dr. Mitchell TAPE# PACS Pericardial Effusion N DATE OF SERVICE: Adequate 2-D echo, color-flow and spectral Doppler, and M-mode. No LVH. LV internal dimensions are normal. Wall motion is normal. EF is greater than 55%. Aortic valve is tricuspid. No evidence of stenosis by Doppler interrogation. Left atrium is mildly dilated at 4.3 cm. Mitral valve shows no prolapse. Trace MR. Right-sided chambers are grossly normal. Trace TR. ECHOCARDIOGRAM REPORT [id number] LANCE GREGG TRANSINT:[id number] Voice Confirmation ID: [id number] DOCUMENT ID: [id number] NATHALIA CURTIS MD at 1355 CC: [id number] DICTATION DATE: 10/04/181737 JIG BOX OPERATOR: 10/04/18 175 DIS IN 10/04/18 [facility] [address] [place] [id number]
--- NOTE | 2018-10-12 13:55 | DS ---
PATIENT:LANCE GREGG :86 MEDICAL RECORD: [id number] DISCHARGE SUMMARY ADMISSION DATE: 10/03/18 DISCHARGE DATE: 10/04/18 DATE OF ADMISSION: 10/03/2018 DATE OF DISCHARGE: 10/04/2018 PROBLEMS: 1. Atrial fibrillation. 2. Postop section. HOSPITAL COURSE: The patient was admitted with atrial fibrillation, rates were initially controlled with IV diltiazem and switched to oral beta-blockade in form of metoprolol b.i.d. Thyroids and echo are pending at this time. NOAC therapy not indicated at this point. Hopefully, she will convert spontaneously. She will be seen back in the office in 2 to 3 weeks. TRANSINT:[id number] Voice Confirmation ID: [id number] DOCUMENT ID: [id number] NATHALIA CURTIS MD at 1355 CC: [id number] DICTATION DATE: 10/04/18 1149 LARDER COOK: 10/04/18 2354 DIS IN 10/04/18 [id number] [place] [address]
== END 2018-10-04 13:39 | disposition home or self-care (01) ==
LOC: D.LDO 14:20 → D.M2 18:07 → OBSVTIME 18:07 → D.M2 18:20 → D.LDO 18:20 → D.M2 10-04 13:39
PROVIDERS: Obstetrics & Gynecology; ADMIT Internal Medicine Interventional Cardiology; ATTEND Internal Medicine Interventional Cardiology
DX: O90.89 Other complications of the puerperium, not elsewhere classified (principal); I48.91 Unspecified atrial fibrillation

== ENCOUNTER → 2019-11-30 08:05 | Outpatient (CLI) | payer BC ==
[2018-10-04 00:55] VITALS: BMI 27.3
[~2019-11-30 08:05] MED LIST changes: +METOPROLOL TART50 MG PO
== END | disposition home or self-care (01) ==
LOC: D.HCCECHO 08:05
PROVIDERS: ATTEND Internal Medicine Interventional Cardiology
DX: I48.91 Unspecified atrial fibrillation (principal)